=== PATIENT | male | born 1960 | race Caucasian/White ===

== ENCOUNTER 2023-04-16 06:29 | Day surgery (SDC) | payer BC ==
[2023-04-16] MEDS ORDERED: Nozin Nasal Sanitizer NASBOTH ONE (07:00)
[2023-04-16 07:02] LABS: HEMATOCRIT 39.1 % (38.4-49.7); MEAN CORPUSCULAR HEMOGLOBIN 30.7 pg (31.6-35.5); MEAN CORPUSCULAR HGB CONC 35.8 g/dL (31.6-35.5); MEAN CORPUSCULAR VOLUME 85.7 fL (81.4-99.0); RED BLOOD CELL COUNT 4.56 M/uL (4.14-5.76)
[2023-04-16] MEDS ORDERED: Bupivacaine 0.5% 30 ML SDV ONE ×2 (07:11→08:39)
[2023-04-16 07:27] LABS: A/G RATIO 1.4 (1.2-2.2); ALANINE AMINOTRANSFERASE,ALT 60 U/L (12-78); ALBUMIN 3.8 g/dL (3.4-5.0); ALKALINE PHOSPHATASE 62 U/L (46-116); ASPARTATE AMNIOTRANSFERASE,AST 31 U/L (15-37); BILIRUBIN TOTAL 1.5 mg/dL (0.2-1.0); BLOOD UREA NITROGEN,BUN 14 mg/dL (7-18); CALCIUM 8.5 mg/dL (8.5-10.1); CARBON DIOXIDE,CO2 24 mmol/L (21-32); CHLORIDE,CL 104 mmol/L (100-108); EST CRCL DRUG DOSING (CG) 77.84 mL/min; ESTIMATED GFR 85 mL/min (>60); GLUCOSE RANDOM 147 mg/dL (74-106); POTASSIUM,K 4.1 mmol/L (3.6-5.2); PROTEIN TOTAL,TP 6.5 g/dL (6.4-8.2); SODIUM,NA 137 mmol/L (140-148)
[2023-04-16] MEDS ORDERED: Lactated Ringers 1,000 ML IV SCH (07:30)
[2023-04-16] MEDS ORDERED: fentaNYL 100 MCG/2 ML SDV ONE ×2 (07:38→09:24)
[2023-04-16] MEDS ORDERED: Midazolam 1 MG/ML 2 ML SDV ONE (07:38)
[2023-04-16] MEDS ORDERED: Propofol 200 MG/20 ML SDV ONE (07:38)
[2023-04-16 07:39] LABS: ANION GAP 13.1 mmol/L (5.0-14.0)
[2023-04-16] MEDS ORDERED: ceFAZolin 2 GM in Sodium Chloride 0.9% 50 ML IV ONE (08:00)
[2023-04-16] MEDS ORDERED: Dexamethasone 4 MG/ML SDV ONE (09:18)
[2023-04-16] MEDS ORDERED: Ondansetron 4 MG/2 ML SDV ONE (09:18)
[2023-04-16] MEDS ORDERED: hydrALAZINE 20 MG/ML SDV ONE (09:46)
[2023-04-16] MEDS ORDERED: Ondansetron 4 MG/2 ML SDV IVPUSH ONE ×2 (11:30→13:50)
[2023-04-16] MEDS ORDERED: Acetaminophen/oxyCODONE 325-5 MG Tab PO ONE (12:25)
[2023-04-16 12:33] VITALS: PULSE 82
[2023-04-16 12:52] VITALS: BP 134/77
== END 2023-04-16 14:53 | disposition home or self-care (01) ==
LOC: JP.SDS 06:29
PROVIDERS: ATTEND Specialist
DX: M75.101 Unspecified rotator cuff tear or rupture of right shoulder, not specified as traumatic (principal); S46.111A Strain of muscle, fascia and tendon of long head of biceps, right arm, initial encounter; M75.41 Impingement syndrome of right shoulder; M75.51 Bursitis of right shoulder; M25.811 Other specified joint disorders, right shoulder; K21.9 Gastro-esophageal reflux disease without esophagitis; E66.9 Obesity, unspecified; Z68.30 Body mass index [BMI] 30.0-30.9, adult; Z88.8 Allergy status to other drugs, medicaments and biological substances; X58.XXXA Exposure to other specified factors, initial encounter
CPT/HCPCS: 29826; 29827; 29828; 36415; 80053; 85027; A9270; C1713; J0360; J0690; J1100; J2250; J2405; J2704; J3010; J3490; J7120